=== PATIENT | female | born 1945 | race Caucasian/White ===

== ENCOUNTER 2018-07-24 13:43 | Inpatient (IN) ==
[2018-07-24] MEDS ORDERED: Morphine Inj 4 MG/ML Vial IV.PUSH ONE (15:18)
[2018-07-24] MEDS ORDERED: Aztreonam Inj 2 GM in Sodium Chloride 0.9% Inj 100 ML IV.SIG STA (15:18)
[2018-07-24] MEDS ORDERED: Vancomycin Inj 1,000 MG in Sodium Chlor 0.9% Inj 250 ML IV.SIG STA (15:18)
--- NOTE | 2018-07-24 15:50 | ED ---
HPI General Chief complaint: Extremity Problem,Nontraumatic Stated complaint: R foot swelling Time Seen by Provider: 07/24/18 15:07 Source: patient and old records reviewed Mode of arrival: ambulatory Limitations: no limitations History of Present Illness MD complaint: Reports discoloration Onset (ago): week(s) (On about 07/15) Location: Reports R foot Severity: severe Severity scale (1-10): 9 Pain Consistency: constant Relieving factors: none Exacerbating factors: none Context: Reports other (She is diabetic. She was apparently bitten by a bug on about 07/15 while working in the garden. She has subsequently developed increasing redness, warmth, swelling and pain of the right foot) Associated symptoms: Reports fever and chills Treatments prior to arrival: Reports antibiotic (Both Bactrim and clindamycin) Related Data Home Medications Medication Instructions Recorded Confirmed aspirin [Aspirin Low Dose] 81 mg PO DAILY 07/22/18 07/24/18 atorvastatin 40 mg PO DAILY 07/22/18 07/24/18 cholecalciferol (vitamin D3) 400 unit PO DAILY 07/22/18 07/24/18 [Vitamin D3] cyanocobalamin (vitamin B-12) 500 mcg PO DAILY 07/22/18 07/24/18 [Vitamin B-12] duloxetine 60 mg PO DAILY 07/22/18 07/24/18 enalapril maleate 10 mg PO BID 07/22/18 07/24/18 fentanyl 1 patch TRANSDERMAL Q72H 07/22/18 07/24/18 ferrous sulfate [iron] 325 mg PO BID 07/22/18 07/24/18 furosemide 40 mg PO DAILY 07/22/18 07/24/18 insulin aspart U-100 [Novolog 1 sliding scale dose SUBCUT UD 07/22/18 07/24/18 U-100 Insulin aspart] insulin glargine [Lantus U-100 46 unit SUBCUT DAILY 07/22/18 07/24/18 Insulin] levothyroxine 20 mcg PO DAILY 07/22/18 07/24/18 omeprazole 20 mg PO DAILY 07/22/18 07/24/18 clindamycin HCl 150 mg PO QID 07/24/18 07/24/18 sulfamethoxazole-trimethoprim 2 tab PO Q12H 07/24/18 07/24/18 [Bactrim] Allergies Allergy/AdvReac Type Severity Reaction Status Date / Time codeine Allergy Severe SWELLING Verified 07/24/18 14:03 penicillin G Allergy Severe SWELLING Verified 07/24/18 14:03 Review of Systems ROS: all other systems reviewed are negative [facility] Medical History Medical History History of high cholesterol (Acute) Hx of anemia of chronic renal failure (Acute) Hx of diabetes mellitus (Acute) Hx of hysterectomy (Acute) Hx of thyroid disease (Acute) Surgical History Surgical History History of back surgery (Acute) Hx of appendectomy (Acute) Hx of knee surgery (Acute) Hx of tonsillectomy (Acute) Social History Social History Substance History: No History of Abuse Second Hand Smoke Exposure: Yes Smoking Status: Current every day smoker Tobacco Type: Cigarettes How Often Do You Have a Drink Containing Alcohol: Never Recent Travel in [facility] within the Last 8 Weeks: No Recent Out of Country Travel within the Last 8 Weeks: No Immunization History Tetanus Immunization: <5 Years Exam Const General: cooperative, healthy appearing, comfortable, no acute distress, well developed and well groomed Orientation: alert, awake and oriented x3 HENMT Head: normal to inspection, normocephalic and atraumatic Nose: no nasal discharge and no epistaxis Mouth: moist mucous membranes Eyes Conjunctivae: conjunctivae normal Sclera: sclerae normal Pupils: PERRL EOM: EOM intact bilaterally Neck Neck: normal visual inspection and full ROM Chest Chest: normal inspection of the chest Resp Effort & Inspection: normal respiratory effort and able to speak in complete sentences Auscultation: clear to auscultation bilaterally Cardio Rate: regular rate Rhythm: regular rhythm Heart Sounds: no murmurs GI Inspection: non-distended Palpation: soft, no hepatosplenomegaly and nontender Back/Spine/Pelvis Cervical Spine: cervical ROM normal Thoracic/Lumbar Spine: thoraco-lumbar ROM normal Skin General: erythema (There is a wound at the base of the right fourth toe with some associated maceration. She has bright redness of the entire dorsum of the right foot worse on the lateral foot. It is warm to the touch.) Neuro General: alert, awake, oriented x3, moves all extremities and CN's II-XI intact bilaterally Cranial Nerves: other Speech: speech normal Motor: no movement abnormalities noted Extrem General: normal to inspection and full ROM Psych Appearance: grossly normal Mental Status: mental status grossly normal Speech and Movement: speech and movement normal Mood: congruent mood Affect: normal affect Attitude: cooperative Thought Process: normal Thought Content: normal Judgment: judgment good Course Consultations Consultation #1: Dr. Quinteros will admit Time: 16:21 Initial Documented Vital Signs Temperature 99.2 F 07/24/18 14:03 Pulse Rate 94 H 07/24/18 14:03 Respiratory Rate 18 07/24/18 14:03 Blood Pressure 149/62 H 07/24/18 14:03 Pulse Oximetry 98 07/24/18 14:03 Last Documented Vital Signs Temperature 99.2 F 07/24/18 14:03 Pulse Rate 94 H 07/24/18 14:03 Respiratory Rate 18 07/24/18 14:03 Blood Pressure 149/62 H 07/24/18 14:03 Pulse Oximetry 98 07/24/18 14:03 Medical Decision Making [facility] Narrative Medical decision making narrative: This patient presents for recheck of cellulitis of her right foot. It is worse rather than better. She has been compliant with her Bactrim and clindamycin. She has failed outpatient management and will need to be admitted to the hospital. Septic workup is in process. She is being empirically treated with aztreonam, Flagyl and vancomycin. She is penicillin allergic. Medical Screen Exam Complete: Yes Emergency Medical Condition: Yes Differential Diagnosis Differential Diagnosis: My differential diagnosis includes but is not limited to localized wound infection, cellulitis, abscess Lab Data Lab results reviewed: Yes I reviewed the patient's lab results. Result diagrams: 07/24/18 15:28 07/24/18 15:28 Lab Results 07/24/18 07/24/18 07/24/18 Range/Units 15:28 15:28 15:28 CBC w Diff Auto diff final WBC 13.3 H (4.0-11.0) th/mm3 RBC 4.92 (4.00-5.30) mil/mm3 Hgb 13.9 (11.6-15.3) gm/dL Hct 43.4 (35.0-46.0) % MCV 88.2 (80.0-100.0) fL MCH 28.2 (27.0-34.0) pg MCHC 32.0 (32.0-36.0) % RDW 13.1 (11.6-17.2) % Plt Count 284 (150-450) th/mm3 MPV 8.9 (7.0-11.0) fL Neut % (Auto) 80.7 H (16.0-70.0) % Lymph % (Auto) 15.9 (9.0-44.0) % [place] % (Auto) 1.8 (0.0-8.0) % Eos % (Auto) 1.0 (0.0-4.0) % Baso % (Auto) 0.6 (0.0-2.0) % Neut # (Auto) 10.8 H (1.8-7.7) th/mm3 Lymph # (Auto) 2.1 (1.0-4.8) th/mm3 [place] # (Auto) 0.2 (0.0-0.9) th/mm3 Eos # (Auto) 0.1 (0.0-0.4) th/mm3 Baso # (Auto) 0.1 (0.0-0.2) th/mm3 WBC Differential . Differential Comment . Sodium 133 L (136-145) meq/L Potassium 4.2 (3.5-5.1) meq/L Chloride 97 L (98-107) meq/L Carbon Dioxide 29.3 (21.0-32.0) meq/L Anion Gap 7 (5-15) meq/L BUN 21 H (7-18) mg/dL Creatinine 1.30 H (0.50-1.00) mg/dL Estimated GFR 40 L (>89) mL/min Random Glucose 235 H (74-106) mg/dL Lactic Acid 1.7 (0.4-2.0) mmol/L Calcium 8.4 L (8.5-10.1) mg/dL Magnesium 2.6 H (1.5-2.5) mg/dL Total Bilirubin 0.4 (0.2-1.0) mg/dL AST 19 (15-37) U/L ALT 26 (10-53) U/L Alkaline Phosphatase 109 (45-117) U/L Total Protein 7.9 (6.4-8.2) g/dL Albumin 3.5 (3.4-5.0) g/dL Imaging Data Radiologist's impression: Foot X-Ray 07/24/18 15:18 CONCLUSION: 1. There are some degenerative changes and hallux valgus angulation at the first metatarsal-phalangeal joint. 2. Otherwise, unremarkable exam for patient's age. Discharge Plan Discharge Disposition Patient Disposition: ED Admit(ED Internal Use Only) Discharge Details Diagnosis: Cellulitis of foot, right Physicians Team ED Provider: Cheryl Whiting Primary Care Provider: UNKNOWN, Rxs /Orders / Referrals /Forms Prescriptions: No Action furosemide 40 mg Tablet 40 mg PO DAILY RF: 0 atorvastatin 40 mg Tablet 40 mg PO DAILY RF: 0 insulin glargine [Lantus U-100 Insulin] 100 unit/mL Solution 46 unit SUBCUT DAILY RF: 0 enalapril maleate 10 mg Tablet 10 mg PO BID RF: 0 aspirin [Aspirin Low Dose] 81 mg Tablet,Delayed Release (Dr/Ec) 81 mg PO DAILY RF: 0 cyanocobalamin (vitamin B-12) [Vitamin B-12] 500 mcg Tablet 500 mcg PO DAILY RF: 0 insulin aspart U-100 [Novolog U-100 Insulin aspart] 100 unit/mL Solution 1 sliding scale dose SUBCUT UD RF: 0 ferrous sulfate [iron] 325 mg (65 mg iron) Tablet 325 mg PO BID RF: 0 fentanyl 75 mcg/hr Patch 72 Hour 1 patch TRANSDERMAL Q72H RF: 0 cholecalciferol (vitamin D3) [Vitamin D3] 400 unit Capsule 400 unit PO DAILY RF: 0 duloxetine 60 mg Capsule,Delayed Release(Dr/Ec) 60 mg PO DAILY RF: 0 omeprazole 20 mg Tablet,Delayed Release (Dr/Ec) 20 mg PO DAILY RF: 0 levothyroxine 25 mcg Capsule 20 mcg PO DAILY RF: 0 sulfamethoxazole-trimethoprim [Bactrim] 400-80 mg Tablet 2 tab PO Q12H RF: 0 clindamycin HCl 150 mg Capsule 150 mg PO QID RF: 0 Status ED Status: Pending Admission
[2018-07-24 15:51] LABS: Baso # (Auto) 0.1 th/mm3 (0.0-0.2); Baso % (Auto) 0.6 % (0.0-2.0); Eos # (Auto) 0.1 th/mm3 (0.0-0.4); Hematocrit 43.4 % (35.0-46.0); Hemoglobin 13.9 gm/dL (11.6-15.3); Lymph # (Auto) 2.1 th/mm3 (1.0-4.8); Lymph % (Auto) 15.9 % (9.0-44.0); Mean Corpuscular Hemoglobin 28.2 pg (27.0-34.0); Mean Corpuscular Volume 88.2 fL (80.0-100.0); Mean Platelet Volume 8.9 fL (7.0-11.0); Mono # (Auto) 0.2 th/mm3 (0.0-0.9); Mono % (Auto) 1.8 % (0.0-8.0); Neut # (Auto) 10.8 th/mm3 (1.8-7.7); Neut % (Auto) 80.7 % (16.0-70.0); Platelet Count 284 th/mm3 (150-450); Red Blood Count 4.92 mil/mm3 (4.00-5.30); Red Cell Distribution Width 13.1 % (11.6-17.2); White Blood Count 13.3 th/mm3 (4.0-11.0)
[2018-07-24 15:56] LABS: Chloride 97 meq/L (98-107); Potassium 4.2 meq/L (3.5-5.1); Sodium 133 meq/L (136-145)
--- NOTE | 2018-07-24 15:58 | XR ---
EXAM DATE: 07/24/2018 3:54 PM EST AGE/SEX: 73 years / Female INDICATIONS: Inflammation right foot, 4th MCPJ, after a bug bite 1 week ago. CLINICAL DATA: This is the patient's initial encounter. Patient reports that signs and symptoms have been present for 1 week and indicates a pain score of 8/10. MEDICAL/SURGICAL HISTORY: None. None. COMPARISON: No prior exams available for comparison. FINDINGS: Bony structures are intact and in normal alignment. There are some mild degenerative changes involvin g the first metatarsal-phalangeal joint with some hallux valgus angulation. The fourth toe is grossly unremarkable. Osseous density is normal. Soft tissues are unremarkable. No radiopaque foreign bodi es seen. CONCLUSION: 1. There are some degenerative changes and hallux valgus angulation at the first metatarsal-phalange al joint. 2. Otherwise, unremarkable exam for patient's age. Electronically signed by: Enoch De Leon MD Board Certified Radiologist 07/24/2018 3:56 PM EST
[2018-07-24 15:59] LABS: Calcium 8.4 mg/dL (8.5-10.1)
[2018-07-24 16:00] LABS: Albumin 3.5 g/dL (3.4-5.0); Anion Gap 7 meq/L (5-15); Blood Urea Nitrogen 21 mg/dL (7-18); Carbon Dioxide 29.3 meq/L (21.0-32.0); Glucose,Random 235 mg/dL (74-106); Magnesium 2.6 mg/dL (1.5-2.5)
[2018-07-24 16:03] LABS: Alanine Aminotransferase 26 U/L (10-53); Aspartate Aminotransferase 19 U/L (15-37); Glomerular Filtration Rate 40 mL/min (>89)
[2018-07-24 16:04] LABS: Total Protein 7.9 g/dL (6.4-8.2)
[2018-07-24 16:06] LABS: Alkaline Phosphatase 109 U/L (45-117)
[2018-07-24] MEDS ORDERED: Bisacodyl 10 MG Supp RECTAL PRN (16:35)
[2018-07-24] MEDS ORDERED: Acetaminophen 325 MG Tablet PO PRN (16:35)
[2018-07-24] MEDS ORDERED: Dextrose 50% in Water 50 ML Vial IV.PUSH PRN (16:38)
[2018-07-24] MEDS ORDERED: Vancomycin Consult Pharmacy OTHER PRN (16:43)
--- NOTE | 2018-07-24 16:49 | P.HPIM ---
History of Present Illness Primary Care Physician: UNKNOWN Chief Complaint: Right foot pain History of Present Illness: 73-year-old female with known history of diabetes, anemia, chronic kidney disease who presented to the emergency department for reevaluation of right foot pain and cellulitis. Patient states that approximately 8 days ago she thinks that she got bit by an insect on her right foot fourth digit. She went to her prior medical doctor's office the next day and started on Bactrim. Patient took the medication and did not get any better so she went to the emergency department 2 days ago. At that time patient was started on clindamycin and took that for approximately 2 days and she still has not improved. It actually got worse with pain, swelling, erythema. The patient came back to the hospital for evaluation and because the patient failed outpatient management as recommended by ER physician the patient be admitted to hospital for further evaluation and management. Patient denies any fever, chills, exudates, drainage. Workup in the emergency department indicate signs of sepsis with leukocytosis, tachycardia, cellulitis of the right foot in a diabetic patient. Review of Systems Review of Systems: all other systems reviewed are negative Skin/Breast: Reports change in pigmentation, Reports lesions and Reports erythema PMFSH Medical History Medical History Hypertension (Acute) History of high cholesterol (Acute) Hx of anemia of chronic renal failure (Acute) Hx of diabetes mellitus (Acute) Hx of hysterectomy (Acute) Hx of thyroid disease (Acute) Surgical History Surgical History History of back surgery (Acute) Hx of appendectomy (Acute) Hx of knee surgery (Acute) Hx of tonsillectomy (Acute) Social History Social History Substance History: No History of Abuse Second Hand Smoke Exposure: Yes Smoking Status: Current every day smoker Tobacco Type: Cigarettes How Often Do You Have a Drink Containing Alcohol: Never Recent Travel in [facility] within the Last 8 Weeks: No Recent Out of Country Travel within the Last 8 Weeks: No Immunization History Tetanus Immunization: <5 Years Medications and Allergies Allergies Allergy/AdvReac Type Severity Reaction Status Date / Time codeine Allergy Severe SWELLING Verified 07/24/18 14:03 penicillin G Allergy Severe SWELLING Verified 07/24/18 14:03 Home Medications Medication Instructions Recorded Confirmed Type aspirin [Aspirin Low Dose] 81 mg PO DAILY 07/22/18 07/24/18 History atorvastatin 40 mg PO DAILY 07/22/18 07/24/18 History cholecalciferol (vitamin D3) 400 unit PO DAILY 07/22/18 07/24/18 History [Vitamin D3] cyanocobalamin (vitamin B-12) 500 mcg PO DAILY 07/22/18 07/24/18 History [Vitamin B-12] duloxetine 60 mg PO DAILY 07/22/18 07/24/18 History enalapril maleate 10 mg PO BID 07/22/18 07/24/18 History fentanyl 1 patch TRANSDERMAL Q72H 07/22/18 07/24/18 History ferrous sulfate [iron] 325 mg PO BID 07/22/18 07/24/18 History furosemide 40 mg PO DAILY 07/22/18 07/24/18 History insulin aspart U-100 [Novolog 1 sliding scale dose SUBCUT UD 07/22/18 07/24/18 History U-100 Insulin aspart] insulin glargine [Lantus U-100 46 unit SUBCUT DAILY 07/22/18 07/24/18 History Insulin] levothyroxine 20 mcg PO DAILY 07/22/18 07/24/18 History omeprazole 20 mg PO DAILY 07/22/18 07/24/18 History clindamycin HCl 150 mg PO QID 07/24/18 07/24/18 History sulfamethoxazole-trimethoprim 2 tab PO Q12H 07/24/18 07/24/18 History [Bactrim] Active Medications: Active Medications Acetaminophen (Tylenol) 650 mg PO Q4H PRN PRN Reason: Temp > 100.4 Al Hydroxide/Mg Hydroxide (Milk Of Magnesia Liq) 30 ml PO Q12H PRN PRN Reason: Mild Constipation Bisacodyl (Dulcolax Supp) 10 mg RECTAL DAILY PRN PRN Reason: SEVERE CONSITIPATION Dextrose (D50w Vial) 50 ml IV.PUSH UNSCH PRN PRN Reason: PER HYPOGLYCEMIA PROTOCOL Glucagon (Glucagon Inj) 1 mg OTHER PRN PRN PRN Reason: for Hypoglycemia Protocol Heparin Sodium (Porcine) (Heparin Inj) 5,000 units SQ Q12HR LIBIA Sodium Chloride (Ns Inj) 1,000 mls @ 100 mls/hr IV.CONT .Q10H LIBIA Insulin Aspart (Novolog Insulin Correctional Sugar Inj) 0 unit SQ ACHS LIBIA; Protocol Lactulose (Lactulose Liq) 30 ml PO DAILY PRN PRN Reason: SEVERE CONSITIPATION Ondansetron HCl (Zofran Inj) 4 mg IV.PUSH Q6H PRN PRN Reason: NAUSEA OR VOMITING Senna/Docusate Sodium (Mihaela-Colace) 1 tab PO BID LIBIA Sennosides (Senokot) 17.2 mg PO Q12H PRN PRN Reason: Moderate Constipation Sodium Chloride (Ns Flush) 2 ml IV.FLUSH BID LIBIA Sodium Chloride (Ns Flush) 2 ml IV.FLUSH PRN PRN PRN Reason: FLUSH AFTER USING IV ACCESS Physical Exam Vital signs: Last Vital Signs Temp 99.2 F 07/24/18 14:03 Pulse 94 H 07/24/18 14:03 Resp 18 07/24/18 14:03 BP 149/62 H 07/24/18 14:03 Pulse Ox 98 07/24/18 14:03 Intake & Output 07/22/18 07/23/18 07/24/18 07/25/18 06:59 06:59 06:59 06:59 Weight 61.5 kg Narrative: GENERAL: Well-developed, well-nourished, in no acute distress. alert and orientated HEENT: Head is normocephalic without any lesions or masses noted. Facial features are symmetric. Eyes: Pupils equal round reactive to light. Extraocular muscles are intact. Conjunctivae were clear. Oropharyngeal: Pharynx without any erythema edema. Tongue is midline without deviation. Buccal mucosa is moist without any masses or lesions NECK: Supple without any masses. Trachea midline no deviation. No JVD, no bruits are appreciated CARDIAC: Regular rhythm, regular rate. S1/S2 are heard. No murmurs gallops or rubs. LUNGS: Clear to auscultation bilaterally. No wheeze, rhonchi or rales. No use of accessory muscles on inspiration or expiration. ABDOMEN: Soft, nontender. Nondistended. Bowel sounds heard in all 4 quadrants. No organomegaly or masses. Negative rebound, negative guarding EXTREMITIES: No edema, pulses are equal bilaterally. No cyanosis or clubbing NEUROLOGY: Mood and affect appear appropriate. Cranial nerves II through XII grossly intact. Muscle strength 5/5 in upper and lower extremities bilaterally. Deep tendon reflexes are 2+ in upper and lower extremities bilaterally. RIGHT FOOT: Patient does have significant erythema noted measuring from the space between the first and second digit to the space between the fourth and fifth digit going up to the anterior part of her foot. There is bullous formation noted over the base of the fourth digit. Results Labs CBC & Chem 7: 07/24/18 15:28 07/24/18 15:28 Imaging Impressions Foot X-Ray 07/24/18 15:18 CONCLUSION: 1. There are some degenerative changes and hallux valgus angulation at the first metatarsal-phalangeal joint. 2. Otherwise, unremarkable exam for patient's age. Caprini VTE Risk Assessment Caprini VTE Risk Assessment: Moderate/High Risk (score >= 2) Caprini Risk Assessment Model: Point Value = 1 Point Value = 2 Point Value = 3 Point Value = 5 Age 41-60 Minor surgery BMI > 25 kg/m2 Swollen legs Varicose veins or History of unexplained or recurrent spontaneous Oral contraceptives or hormone replacement Sepsis (< 1 month) Serious lung disease, including pneumonia (< 1 month) Abnormal pulmonary function Acute myocardial infarction Congestive heart failure (< 1 month) History of inflammatory bowel disease Medical patient at bed rest Age 61-74 Arthroscopic surgery Major open surgery (> 45 min) Laparoscopic surgery (> 45 min) Malignancy Confined to bed (> 72 hours) Immobilizing plaster cast Central venous access Age >= 75 History of VTE Family history of VTE Factor V Leiden Prothrombin [id number] Lupus anticoagulant Anticardiolipin antibodies Elevated serum homocysteine Heparin-induced thrombocytopenia Other congenital or acquired thrombophilia Stroke (< 1 month) Elective arthroplasty Hip, pelvis, or leg fracture Acute spinal cord injury (< 1 month) Prophylaxis Regimen: Total Risk Factor Score Risk Level Prophylaxis Regimen 0-1 Low Early ambulation 2 Moderate Order ONE of the following: *Sequential Compression Device (SCD) *Heparin 5000 units SQ BID 3-4 Higher Order ONE of the following medications: *Heparin 5000 units SQ TID *Enoxaparin/Lovenox 40 mg SQ daily (WT < 150 kg, CrCl > 30 mL/min) *Enoxaparin/Lovenox 30 mg SQ daily (WT < 150 kg, CrCl > 10-29 mL/min) *Enoxaparin/Lovenox 30 mg SQ BID (WT < 150 kg, CrCl > 30 mL/min) AND/OR *Sequential Compression Device (SCD) 5 or more Highest Order ONE of the following medications: *Heparin 5000 units SQ TID (Preferred with Epidurals) *Enoxaparin/Lovenox 40 mg SQ daily (WT < 150 kg, CrCl > 30 mL/min) *Enoxaparin/Lovenox 30 mg SQ daily (WT < 150 kg, CrCl > 10-29 mL/min) *Enoxaparin/Lovenox 30 mg SQ BID (WT < 150 kg, CrCl > 30 mL/min) AND *Sequential Compression Device (SCD) Assessment and Plan Plan Sepsis -Patient meets criteria with leukocytosis, tachycardia, diabetic foot infection of the right foot -Patient started on empirical antibiotics include vancomycin, Azactam, Flagyl -Obtain blood cultures -Continue monitor CBC Diabetic foot cellulitis with bolus formation at the fourth digit -Patient started on empirical antibiotics as above -Obtain sed rate, C-reactive protein -Obtain x-ray of the foot to evaluate for any signs of osteomyelitis -Consult podiatry for further recommendations Diabetes -Accu-Cheks with sliding scale insulin -Diabetic diet Hypertension, hyperlipidemia, hypothyroidism -Continue home medications Chronic pain -Patient currently on fentanyl patch 75 mcg -E force was reviewed and confirms that she is on the medication Chronic kidney disease stage III -Continue IV fluids -Monitor renal function -Avoid nephrotoxins DVT prevention -Sequential compression devices
[2018-07-24] MEDS: Sod Chloride 0.9% Inj 1,000 ML IV.CONT SCH (17:51)
[2018-07-24] MEDS: Insulin NovoLOG Aspart Correctional Sugar Inj SQ SCH ×2 (18:54→22:10)
[2018-07-24] MEDS ORDERED: Heparin - SQ 10,000 UNITS/ML Vial SQ SCH (21:00)
[2018-07-24] MEDS: Ferrous Sulfate 325 MG Tablet PO SCH (23:33)
[2018-07-24] MEDS: Senna/Docusate Sodium 8.6/50 MG Tablet PO SCH (23:33)
[2018-07-25] MEDS: Sod Chloride 0.9% Inj 1,000 ML IV.CONT SCH ×3 (05:27→22:23)
--- NOTE | 2018-07-25 08:04 | P.PNIM ---
Subjective Interval history: Follow-up right foot cellulitis with possible abscess. Patient seen and examined, sitting up in bed with notable pain. She states that there has been no improvement overnight. Sensation intact. Notable fluctuance on fourth digit. Spoke to surgeon who ordered for NPO and MRI. Plan will possibly be for OR this afternoon. Physical Exam Vital signs: Vital Signs 07/24/18 14:03 07/24/18 17:36 07/24/18 19:56 Temperature 99.2 F Pulse Rate 94 H 69 78 Respiratory Rate 18 20 20 Blood Pressure 149/62 H 115/49 L 136/53 L Pulse Oximetry 98 96 95 07/24/18 22:23 07/25/18 00:00 07/25/18 00:15 Temperature 97.9 F Pulse Rate 71 69 83 Respiratory Rate 18 18 Blood Pressure 121/52 L 153/70 H Pulse Oximetry 98 97 07/25/18 04:00 07/25/18 04:52 Temperature 96.5 F L Pulse Rate 64 65 Respiratory Rate 18 Blood Pressure 129/59 L Pulse Oximetry 98 Intake & Output 07/24/18 07/25/18 07/25/18 18:59 06:59 18:59 Intake Total 200 / 200 2100 / 2100 Output Total 350 / 350 Balance 200 / 200 1750 / 1750 Weight 61.5 kg 68.5 kg Intake: IV 200 / 200 1900 / 1900 NS Inj 1,000 ML @ 100 mls/hr IV 1450 / 1450 .CONT .Q10H [facility] Rx#:[id number] Azactam Inj 1,000 MG In NS Inj 100 / 100 100 ML @ 200 mls/hr IV.SIG Q8H [facility] Rx#:[id number] Azactam Inj 2 GM In NS Inj 100 100 / 100 ML @ 200 mls/hr IV.SIG STAT STA Rx#:[id number] Vancomycin Inj 1,000 MG In NS 250 / 250 Inj 250 ML @ 250 mls/hr IV.SIG STAT STA Rx#:[id number] Flagyl 500 MG Inj 100 ML @ 100 100 / 100 100 / 100 mls/hr IV.SIG Q8H [facility] Rx#: [id number] Oral 200 / 200 Output: Urine 350 / 350 Other: Date of Last Bowel Movement 07/24/18 Weight On Admission 68.1 kg Narrative: GENERAL: Well-developed, well-nourished, in no acute distress. alert and orientated HEENT: Head is normocephalic without any lesions or masses noted. Facial features are symmetric. Eyes: Pupils equal round reactive to light. Extraocular muscles are intact. Conjunctivae were clear. Oropharyngeal: Pharynx without any erythema edema. Tongue is midline without deviation. Buccal mucosa is moist without any masses or lesions NECK: Supple without any masses. Trachea midline no deviation. No JVD, no bruits are appreciated CARDIAC: Regular rhythm, regular rate. S1/S2 are heard. No murmurs gallops or rubs. LUNGS: Clear to auscultation bilaterally. No wheeze, rhonchi or rales. No use of accessory muscles on inspiration or expiration. ABDOMEN: Soft, nontender. Nondistended. Bowel sounds heard in all 4 quadrants. No organomegaly or masses. Negative rebound, negative guarding EXTREMITIES: No edema, pulses are equal bilaterally. No cyanosis or clubbing NEUROLOGY: Mood and affect appear appropriate. Cranial nerves II through XII grossly intact. Muscle strength 5/5 in upper and lower extremities bilaterally. Deep tendon reflexes are 2+ in upper and lower extremities bilaterally. RIGHT FOOT: Patient does have significant erythema noted measuring from the space between the first and second digit to the space between the fourth and fifth digit going up to the anterior part of her foot. There is bullous formation noted over the base of the fourth digit. Notable fluctuance. Results - Labs CBC & Chem 7: 07/24/18 15:28 07/24/18 15:28 Laboratory Results - last 24 hr 07/24/18 07/24/18 07/24/18 15:28 15:28 15:28 CBC w Diff Auto diff final WBC 13.3 H RBC 4.92 Hgb 13.9 Hct 43.4 MCV 88.2 MCH 28.2 MCHC 32.0 RDW 13.1 Plt Count 284 MPV 8.9 Neut % (Auto) 80.7 H Lymph % (Auto) 15.9 [place] % (Auto) 1.8 Eos % (Auto) 1.0 Baso % (Auto) 0.6 Neut # (Auto) 10.8 H Lymph # (Auto) 2.1 [place] # (Auto) 0.2 Eos # (Auto) 0.1 Baso # (Auto) 0.1 WBC Differential . Differential Comment . ESR Sodium 133 L Potassium 4.2 Chloride 97 L Carbon Dioxide 29.3 Anion Gap 7 BUN 21 H Creatinine 1.30 H Estimated GFR 40 L POC Glucose Random Glucose 235 H Lactic Acid 1.7 Calcium 8.4 L Magnesium 2.6 H Total Bilirubin 0.4 AST 19 ALT 26 Alkaline Phosphatase 109 C-Reactive Protein Total Protein 7.9 Albumin 3.5 07/24/18 07/24/18 07/24/18 15:28 15:28 17:00 CBC w Diff WBC RBC Hgb Hct MCV MCH MCHC RDW Plt Count MPV Neut % (Auto) Lymph % (Auto) [place] % (Auto) Eos % (Auto) Baso % (Auto) Neut # (Auto) Lymph # (Auto) [place] # (Auto) Eos # (Auto) Baso # (Auto) WBC Differential Differential Comment ESR 37 H Sodium Potassium Chloride Carbon Dioxide Anion Gap BUN Creatinine Estimated GFR POC Glucose Random Glucose Lactic Acid 1.3 Calcium Magnesium Total Bilirubin AST ALT Alkaline Phosphatase C-Reactive Protein 6.84 H Total Protein Albumin 07/24/18 07/24/18 07/24/18 17:54 21:33 21:35 CBC w Diff WBC RBC Hgb Hct MCV MCH MCHC RDW Plt Count MPV Neut % (Auto) Lymph % (Auto) [place] % (Auto) Eos % (Auto) Baso % (Auto) Neut # (Auto) Lymph # (Auto) [place] # (Auto) Eos # (Auto) Baso # (Auto) WBC Differential Differential Comment ESR Sodium Potassium Chloride Carbon Dioxide Anion Gap BUN Creatinine Estimated GFR POC Glucose 165 H 343 H 370 H Random Glucose Lactic Acid Calcium Magnesium Total Bilirubin AST ALT Alkaline Phosphatase C-Reactive Protein Total Protein Albumin - Imaging Impressions Foot X-Ray 07/24/18 15:18 CONCLUSION: 1. There are some degenerative changes and hallux valgus angulation at the first metatarsal-phalangeal joint. 2. Otherwise, unremarkable exam for patient's age. Assessment and Plan - Plan This is a 73-year-old female patient with: Sepsis -Patient meets criteria with leukocytosis, tachycardia, diabetic foot infection of the right foot -Patient started on empirical antibiotics include vancomycin, Azactam, Flagyl. Continued. -Obtain blood cultures. Pending. Follow. -Continue monitor CBC. Pending labs today. Follow. Diabetic foot cellulitis with bolus formation at the fourth digit -Patient started on empirical antibiotics as above -Sed rate and C-reactive protein elevated. -Keep n.p.o. MRI ordered for this morning. Follow. Spoke to podiatry, possible plan for OR this afternoon. -Right foot x-ray no notable osteomyelitis. Awaiting MRI. Diabetes -Accu-Cheks with sliding scale insulin -Diabetic diet -Monitor for hypoglycemia, n.p.o. Hypertension, hyperlipidemia, hypothyroidism -Continue home medications Chronic pain -Patient currently on fentanyl patch 75 mcg -E force was reviewed and confirms that she is on the medication -IV morphine as needed. Added [place] as well per pain scale. Chronic kidney disease stage III -Continue IV fluids -Monitor renal function -Avoid nephrotoxins DVT prevention -Sequential compression devices Discharge Planning: Podiatry consulted, plan for the OR this afternoon. Await clinical improvement.
[2018-07-25 08:28] LABS: Baso % (Auto) 0.2 % (0.0-2.0); Eos # (Auto) 0.3 th/mm3 (0.0-0.4); Eos % (Auto) 3.3 % (0.0-4.0); Hematocrit 36.8 % (35.0-46.0); Hemoglobin 11.6 gm/dL (11.6-15.3); Lymph # (Auto) 3.3 th/mm3 (1.0-4.8); Lymph % (Auto) 36.3 % (9.0-44.0); Mean Corpuscular HGB Conc 31.5 % (32.0-36.0); Mean Platelet Volume 8.9 fL (7.0-11.0); Mono # (Auto) 0.5 th/mm3 (0.0-0.9); Mono % (Auto) 5.2 % (0.0-8.0); Neut # (Auto) 4.9 th/mm3 (1.8-7.7); Platelet Count 237 th/mm3 (150-450); Red Blood Count 4.13 mil/mm3 (4.00-5.30); Red Cell Distribution Width 13.2 % (11.6-17.2)
[2018-07-25] MEDS: Insulin NovoLOG Aspart Correctional Sugar Inj SQ SCH ×3 (08:50→16:45)
[2018-07-25] MEDS: Ferrous Sulfate 325 MG Tablet PO SCH ×2 (08:51→22:08)
[2018-07-25] MEDS: Furosemide 40 MG Tablet PO SCH (08:51)
[2018-07-25] MEDS: Pantoprazole Sodium 20 MG DR Tablet PO SCH (08:52)
[2018-07-25] MEDS: Duloxetine 60 MG DR Capsule PO SCH (08:52)
[2018-07-25 08:54] LABS: Calcium 8.1 mg/dL (8.5-10.1); Carbon Dioxide 30.7 meq/L (21.0-32.0); Potassium 4.3 meq/L (3.5-5.1)
[2018-07-25] MEDS: Senna/Docusate Sodium 8.6/50 MG Tablet PO SCH ×2 (09:00→22:09)
[2018-07-25] MEDS ORDERED: Heparin Central Flush 100 UNIT/ML 5 ML Vial IV.FLUSH SCH (09:00)
[2018-07-25] MEDS ORDERED: Gadobutrol PF 7.5 MMOL/7.5 ML Vial (for RAD) IV.SIG ONE (10:56)
--- NOTE | 2018-07-25 11:23 | MR ---
EXAM DATE: 07/25/2018 11:16 AM EST AGE/SEX: 73 years / Female INDICATIONS: Osteomyelitis. Bug bite wound by the fourth MTPJ for one week. CLINICAL DATA: This is the patient's initial encounter. Patient reports that signs and symptoms have been present for 1 week and indicates a pain score of 8/10. MEDICAL/SURGICAL HISTORY: Diabetes mellitus type II. Renal insufficiency. Hyperthyroidism. To nsillectomy. Hysterectomy. Appendectomy. LSP sx, Knee sx, COMPARISON: . TECHNIQUE: Multiplanar, multisequence MRI examination was performed without contrast and after th e intravenous administration of 7 ml Gadavist (gadobutrol) single exam dose. FINDINGS: Bones: The osseous structures are in normal alignment. No evidence of fracture or bony edema. There are no obvious erosions present. Joint Spaces: No joint effusion or loose bodies are seen. The joint spaces are preserved. Tendons: The flexor tendons are intact. Soft Tissues: There is soft tissue swelling at the dorsal aspect of the mid and forefoot. There is a focal fluid collection measuring 1.4 x 1.1 x 1.7 cm at the dorsal aspect of the forefoot in the regio n of the interspace between the third and fourth proximal phalanges at the level of the MTP joints. E nhancement seen in this region. Other: The plantar fascia is intact. No signal abnormalities are seen in the plantar musculature. Post Contrast: CONCLUSION: 1. Soft tissue inflammation and suspected superficial abscess between the third and fourth MTP joint regions. 2. No areas of osteomyelitis are seen. Electronically signed by: Omari Landis MD Board Certified Radiologist 07/25/2018 11:22 AM EST
[2018-07-25] MEDS ORDERED: Bupivacaine PF 0.5% Inj 30 ML Vial ONE (16:45)
[2018-07-25] MEDS ORDERED: Lidocaine 2% Inj 50 ML Vial ONE (16:46)
--- NOTE | 2018-07-25 17:48 | P.CONPOD ---
History of Present Illness Service: Podiatry Consult date: 07/25/18 Reason for Consult: Right foot infection/pain Primary Care Provider: UNKNOWN Chief Complaint: Right foot pain History of Present Illness: Patient states she was outside and thinks she got a bug bite about a week ago to top of right forefoot. She says it has progressively become more painful and red and she has family who are nurses/physicians who advised she go to ED. Review of Systems All other systems reviewed negative except as stated in HPI PMFSH - History History Provided By: Patient - Medical History Medical History: Medical History (Last Updated 07/24/18 @ 17:00 by HUNTER Pardo) Hypertension History of high cholesterol Hx of anemia of chronic renal failure Hx of diabetes mellitus Hx of hysterectomy Hx of thyroid disease - Surgical History Surgical History: Surgical History (Last Reviewed 07/24/18 @ 16:51 by HUNTER Pardo) History of back surgery Hx of appendectomy Hx of knee surgery Hx of tonsillectomy - Family History Family History: Family History (Last Reviewed 07/22/18 @ 19:40 by Elliot Goldman MD) Father History of renal failure - Tobacco History Second Hand Smoke Exposure: No Tobacco Use In Past 30 Days: Yes Smoking Status: Current every day smoker Tobacco Type: Cigarettes - Alcohol History How Often Do You Have a Drink Containing Alcohol: Never - Substance Use History Substance History: No History of Abuse - Travel History Recent Travel in the [place] Within the Last 8 Weeks: No Recent Travel Out of the Country Within the Last 8 Weeks: No - Immunization History Tetanus Immunization: <5 Years Hx Influenza Vaccine This Season: Yes Medications and Allergies Active Medications: Active Medications Acetaminophen (Tylenol) 650 mg PO Q4H PRN PRN Reason: Temp > 100.4 Hydrocodone Bitart/Acetaminophen (Roberts 5/325) 1 tab PO Q4H PRN PRN Reason: PAIN SCALE 1 TO 5 Hydrocodone Bitart/Acetaminophen (Roberts 10/325) 1 tab PO Q4H PRN PRN Reason: PAIN SCALE 6 TO 10 Last Admin: 07/25/18 08:58 Dose: 1 tab Al Hydroxide/Mg Hydroxide (Milk Of Magnesia Liq) 30 ml PO Q12H PRN PRN Reason: Mild Constipation Atorvastatin Calcium (Lipitor) 40 mg PO DAILY [facility] Last Admin: 07/25/18 08:51 Dose: 40 mg Bisacodyl (Dulcolax Supp) 10 mg RECTAL DAILY PRN PRN Reason: SEVERE CONSITIPATION Dextrose (D50w Vial) 50 ml IV.PUSH UNSCH PRN PRN Reason: PER HYPOGLYCEMIA PROTOCOL Duloxetine HCl (Cymbalta) 60 mg PO DAILY [facility] Last Admin: 07/25/18 08:52 Dose: 60 mg Fentanyl (Duragesic 75 Mcg Patch.72hr) 1 patch T-DERMAL Q72H [facility] Ferrous Sulfate (Ferosul) 325 mg PO BID [facility] Last Admin: 07/25/18 08:51 Dose: 325 mg Furosemide (Lasix) 40 mg PO DAILY [facility] Last Admin: 07/25/18 08:51 Dose: 40 mg Glucagon (Glucagon Inj) 1 mg OTHER PRN PRN PRN Reason: for Hypoglycemia Protocol Heparin Sodium (Porcine) (Heparin Inj) 5,000 units SQ Q12HR [facility] Last Admin: 07/24/18 22:13 Dose: 5,000 units Heparin Sodium (Porcine) (Heparin Central Flush) 200 unit IV.FLUSH DAILY [facility] Sodium Chloride (Ns Inj) 1,000 mls @ 100 mls/hr IV.CONT .Q10H [facility] Last Admin: 07/25/18 12:58 Dose: 100 mls/hr Aztreonam 1,000 mg/ Sodium (Chloride) 100 mls @ 200 mls/hr IV.SIG Q8H [facility] Last Admin: 07/25/18 16:25 Dose: 200 mls/hr Metronidazole/Sodium Chloride (Flagyl 500 Mg Inj) 100 mls @ 100 mls/hr IV.SIG Q8H [facility] Last Infusion: 07/25/18 11:08 Dose: Infused Vancomycin HCl 1,000 mg/ (Sodium Chloride) 250 mls @ 250 mls/hr IV.SIG Q24H [facility] Insulin Aspart (Novolog Insulin Correctional Sugar Inj) 0 unit SQ ACHS [facility]; Protocol Last Admin: 07/25/18 16:45 Dose: Not Given Lactulose (Lactulose Liq) 30 ml PO DAILY PRN PRN Reason: SEVERE CONSITIPATION Levothyroxine Sodium (Synthroid) 25 mcg PO DAILY@0600 [facility] Miscellaneous Information ([facility] Ordered Lab Info) 0 each OTHER ONCE ONE Stop: 07/27/18 17:46 Morphine Sulfate (Morphine Inj) 2 mg IV.PUSH Q4H PRN PRN Reason: BREAKTHROUGH PAIN Ondansetron HCl (Zofran Inj) 4 mg IV.PUSH Q6H PRN PRN Reason: NAUSEA OR VOMITING Pantoprazole Sodium (Protonix) 20 mg PO DAILY [facility] Last Admin: 07/25/18 08:52 Dose: 20 mg Pharmacy Profile Note (Vancomycin Consult Pharmacy) 1 each OTHER UNSCH PRN PRN Reason: Pharmacy to dose Senna/Docusate Sodium (Mihaela-Colace) 1 tab PO BID [facility] Last Admin: 07/25/18 09:00 Dose: Not Given Sennosides (Senokot) 17.2 mg PO Q12H PRN PRN Reason: Moderate Constipation Sodium Chloride (Ns Flush) 2 ml IV.FLUSH BID [facility] Last Admin: 07/25/18 09:00 Dose: Not Given Sodium Chloride (Ns Flush) 2 ml IV.FLUSH PRN PRN PRN Reason: FLUSH AFTER USING IV ACCESS Allergies Allergy/AdvReac Type Severity Reaction Status Date / Time codeine Allergy Severe SWELLING Verified 07/24/18 14:03 penicillin G Allergy Severe SWELLING Verified 07/24/18 14:03 Home Medications Medication Instructions Recorded Confirmed Type aspirin [Aspirin Low Dose] 81 mg PO DAILY 07/22/18 07/24/18 History atorvastatin 40 mg PO DAILY 07/22/18 07/24/18 History cholecalciferol (vitamin D3) 400 unit PO DAILY 07/22/18 07/24/18 History [Vitamin D3] cyanocobalamin (vitamin B-12) 500 mcg PO DAILY 07/22/18 07/24/18 History [Vitamin B-12] duloxetine 60 mg PO DAILY 07/22/18 07/24/18 History fentanyl 1 patch TRANSDERMAL Q72H 07/22/18 07/24/18 History ferrous sulfate [iron] 325 mg PO BID 07/22/18 07/24/18 History furosemide 40 mg PO DAILY 07/22/18 07/24/18 History insulin aspart U-100 [Novolog 1 sliding scale dose SUBCUT UD 07/22/18 07/24/18 History U-100 Insulin aspart] insulin glargine [Lantus U-100 46 unit SUBCUT DAILY 07/22/18 07/24/18 History Insulin] levothyroxine 20 mcg PO DAILY 07/22/18 07/24/18 History omeprazole 20 mg PO DAILY 07/22/18 07/24/18 History clindamycin HCl 150 mg PO QID 07/24/18 07/24/18 History sulfamethoxazole-trimethoprim 2 tab PO Q12H 07/24/18 07/24/18 History [Bactrim] Physical Exam Vital signs: Vital Signs 07/24/18 19:56 07/24/18 22:23 07/25/18 00:00 Temperature 97.9 F Pulse Rate 78 71 69 Respiratory Rate 20 18 18 Blood Pressure 136/53 L 121/52 L 153/70 H Pulse Oximetry 95 98 97 07/25/18 00:15 07/25/18 04:00 07/25/18 04:52 Temperature 96.5 F L Pulse Rate 83 64 65 Respiratory Rate 18 Blood Pressure 129/59 L Pulse Oximetry 98 07/25/18 08:00 07/25/18 12:00 07/25/18 13:10 Temperature 97.3 F L 97.8 F Pulse Rate 75 65 65 Respiratory Rate 19 19 Blood Pressure 120/59 L 148/66 H Pulse Oximetry 96 96 Intake & Output 07/24/18 07/25/18 07/25/18 18:59 06:59 18:59 Intake Total 200 / 200 2100 / 2100 1200 / 1200 Output Total 350 / 350 500 / 500 Balance 200 / 200 1750 / 1750 700 / 700 Weight 61.5 kg 68.5 kg Intake: IV 200 / 200 1900 / 1900 1200 / 1200 NS Inj 1,000 ML @ 100 mls/hr IV 1450 / 1450 1000 / 1000 .CONT .Q10H [facility] Rx#:[id number] Azactam Inj 1,000 MG In NS Inj 100 / 100 100 / 100 100 ML @ 200 mls/hr IV.SIG Q8H [facility] Rx#:[id number] Azactam Inj 2 GM In NS Inj 100 100 / 100 ML @ 200 mls/hr IV.SIG STAT STA Rx#:[id number] Vancomycin Inj 1,000 MG In NS 250 / 250 Inj 250 ML @ 250 mls/hr IV.SIG STAT STA Rx#:[id number] Flagyl 500 MG Inj 100 ML @ 100 100 / 100 100 / 100 100 / 100 mls/hr IV.SIG Q8H [facility] Rx#: [id number] Oral 200 / 200 0 / 0 Output: Urine 350 / 350 500 / 500 Other: Date of Last Bowel Movement 07/24/18 07/24/18 Weight On Admission 68.1 kg Narrative: Right dorsal base of 4th toe area with necrotic center, purulent drainage, and surrounding indurated tissue and erythema/edema to right forefoot diffusely. Painful to palpation. Sensation intact. Pulses intact. Brisk capillary refill to digits. Results - Labs CBC & Chem 7: 07/25/18 06:35 07/25/18 06:35 Laboratory Results - last 24 hr 07/24/18 07/24/18 07/24/18 15:28 17:54 21:33 CBC w Diff WBC RBC Hgb Hct MCV MCH MCHC RDW Plt Count MPV Neut % (Auto) Lymph % (Auto) [place] % (Auto) Eos % (Auto) Baso % (Auto) Neut # (Auto) Lymph # (Auto) [place] # (Auto) Eos # (Auto) Baso # (Auto) WBC Differential Differential Comment ESR 37 H Sodium Potassium Chloride Carbon Dioxide Anion Gap BUN Creatinine Estimated GFR POC Glucose 165 H 343 H Random Glucose Calcium 07/24/18 07/25/18 07/25/18 21:35 06:35 06:35 CBC w Diff Auto diff final WBC 9.0 RBC 4.13 Hgb 11.6 D Hct 36.8 MCV 89.0 MCH 28.0 MCHC 31.5 L RDW 13.2 Plt Count 237 MPV 8.9 Neut % (Auto) 55.0 Lymph % (Auto) 36.3 [place] % (Auto) 5.2 Eos % (Auto) 3.3 Baso % (Auto) 0.2 Neut # (Auto) 4.9 Lymph # (Auto) 3.3 [place] # (Auto) 0.5 Eos # (Auto) 0.3 Baso # (Auto) 0.0 WBC Differential . Differential Comment . ESR Sodium 141 Potassium 4.3 Chloride 106 D Carbon Dioxide 30.7 Anion Gap 4 L BUN 16 Creatinine 0.89 Estimated GFR 62 L POC Glucose 370 H Random Glucose 106 D Calcium 8.1 L 07/25/18 07/25/18 07/25/18 08:04 11:44 16:30 CBC w Diff WBC RBC Hgb Hct MCV MCH MCHC RDW Plt Count MPV Neut % (Auto) Lymph % (Auto) [place] % (Auto) Eos % (Auto) Baso % (Auto) Neut # (Auto) Lymph # (Auto) [place] # (Auto) Eos # (Auto) Baso # (Auto) WBC Differential Differential Comment ESR Sodium Potassium Chloride Carbon Dioxide Anion Gap BUN Creatinine Estimated GFR POC Glucose 157 H 142 H 95 Random Glucose Calcium Microbiology 07/24/18 15:28 Blood - Peripheral Aerobic Blood Culture - Preliminary No growth in 1 day 07/24/18 15:28 Blood - Peripheral Anaerobic Blood Culture - Preliminary No growth in 1 day 07/24/18 15:33 Blood - Peripheral Aerobic Blood Culture - Preliminary No growth in 1 day 07/24/18 15:33 Blood - Peripheral Anaerobic Blood Culture - Preliminary No growth in 1 day - Imaging Impressions Foot MRI 07/25/18 07:47 CONCLUSION: 1. Soft tissue inflammation and suspected superficial abscess between the third and fourth MTP joint regions. 2. No areas of osteomyelitis are seen. Assessment and Plan - Assessment (1) Abscess of right foot including toes Code(s): L02.611 - Cutaneous abscess of right foot Status: Acute Plan: To OR for Incision and drainage of abscess right foot Risks, benefits, complications discussed with patient.
--- NOTE | 2018-07-25 17:51 | P.BOP ---
- Preoperative Diagnosis (1) Abscess of right foot including toes - Postoperative Diagnosis (1) Abscess of right foot including toes Date of procedure: 07/25/18 Procedure: Incision and drainage of abscess right foot. Incision 2cm length made over abscessed area at dorsal base of 4th toe. Milky purulent drainage encountered and culture taken. Necrotic and fibrotic tissue and purulent material removed with #15, rongeur, and curette, followed by irrigation with 3L normal saline. Closure with 2-0 nylon and packing distally with 1/4'' iodoform gauze. Dressing with xeroform, 4x4, abd, cast padding, puneet applied right foot. No tourniquet utilized. DISPOSITION: Do not anticipate further surgery. Daily packing changes per nursing while in-house Dr Chan to take over coverage and will evaluate response to antibiotics and make further dressing recommendations prior to clearing for discharge Weightbearing as tolerated right foot in surgical shoe. Anesthesia: GETA, local (10mL 0.5% marcaine plain) Surgeon: Amol Tan DPM Sports Administrator: staff Estimated blood loss (mL): 10 Pathology: other (1. culture right foot) Condition: stable Disposition: PACU
[2018-07-25] MEDS: Vancomycin Inj 1,000 MG in Sodium Chlor 0.9% Inj 250 ML IV.SIG SCH (18:15)
[2018-07-25] MEDS ORDERED: HYDROmorphone PF Inj 0.5 MG/0.5 ML Syringe ONE (18:34)
[2018-07-26] MEDS: Insulin NovoLOG Aspart Correctional Sugar Inj SQ SCH ×5 (00:31→22:56)
[2018-07-26] MEDS: Morphine Inj 4 MG/ML Vial IV.PUSH PRN ×4 (00:32→22:56)
[2018-07-26] MEDS: Sod Chloride 0.9% Inj 1,000 ML IV.CONT SCH ×2 (09:53→19:26)
[2018-07-26] MEDS: Pantoprazole Sodium 20 MG DR Tablet PO SCH (09:58)
[2018-07-26] MEDS: Duloxetine 60 MG DR Capsule PO SCH (09:58)
[2018-07-26] MEDS: Senna/Docusate Sodium 8.6/50 MG Tablet PO SCH ×2 (09:58→20:56)
[2018-07-26] MEDS: Furosemide 40 MG Tablet PO SCH (09:58)
[2018-07-26] MEDS: Ferrous Sulfate 325 MG Tablet PO SCH ×2 (09:58→20:56)
--- NOTE | 2018-07-26 12:01 | P.PNIM ---
Subjective Interval history: Follow-up right fourth digit abscess status post I&D on 07/25/18. Patient seen and examined, sitting up in bed comfortably no apparent distress. Pain well controlled on current regimen. Eating well without any abdominal pain, nausea or vomiting. Vital signs stable. Afebrile. Awaiting cultures. Physical Exam Vital signs: Vital Signs 07/25/18 12:00 07/25/18 13:10 07/25/18 16:49 Temperature 97.8 F 98.3 F Pulse Rate 65 65 65 Respiratory Rate 19 16 Blood Pressure 148/66 H 117/54 L Pulse Oximetry 96 98 07/25/18 18:30 07/25/18 18:45 07/25/18 19:00 Temperature 98.2 F 98.1 F Pulse Rate 69 68 64 Respiratory Rate 14 16 16 Blood Pressure 143/66 H 150/64 H 140/78 Pulse Oximetry 96 96 95 07/25/18 20:00 07/26/18 00:00 07/26/18 08:00 Temperature 97.8 F 97.8 F 97.4 F L Pulse Rate 74 68 75 Respiratory Rate 20 20 20 Blood Pressure 136/63 131/62 159/68 H Pulse Oximetry 95 95 95 Intake & Output 07/25/18 07/26/18 07/26/18 18:59 06:59 18:59 Intake Total 2190 / 2190 1290 / 1290 Output Total 500 / 500 Balance 1690 / 1690 1290 / 1290 Weight 68.2 kg Intake: IV 1500 / 1500 1050 / 1050 NS Inj 1,000 ML @ 100 mls/hr IV 1100 / 1100 600 / 600 .CONT .Q10H [facility] Rx#:[id number] Azactam Inj 1,000 MG In NS Inj 200 / 200 100 / 100 100 ML @ 200 mls/hr IV.SIG Q8H [facility] Rx#:[id number] Vancomycin Inj 1,000 MG In NS 250 / 250 Inj 250 ML @ 250 mls/hr IV.SIG Q24H [facility] Rx#:[id number] Flagyl 500 MG Inj 100 ML @ 100 200 / 200 100 / 100 mls/hr IV.SIG Q8H [facility] Rx#: [id number] Oral 240 / 240 240 / 240 Anesthesia Amount 100 / 100 Other 350 / 350 Output: Urine 500 / 500 Other: # Voids 0 3 Date of Last Bowel Movement 07/24/18 Narrative: GENERAL: Well-developed, well-nourished, in no acute distress. alert and orientated HEENT: Head is normocephalic without any lesions or masses noted. Facial features are symmetric. Eyes: Pupils equal round reactive to light. Extraocular muscles are intact. Conjunctivae were clear. Oropharyngeal: Pharynx without any erythema edema. Tongue is midline without deviation. Buccal mucosa is moist without any masses or lesions NECK: Supple without any masses. Trachea midline no deviation. No JVD, no bruits are appreciated CARDIAC: Regular rhythm, regular rate. S1/S2 are heard. No murmurs gallops or rubs. LUNGS: Clear to auscultation bilaterally. No wheeze, rhonchi or rales. No use of accessory muscles on inspiration or expiration. ABDOMEN: Soft, nontender. Nondistended. Bowel sounds heard in all 4 quadrants. No organomegaly or masses. Negative rebound, negative guarding EXTREMITIES: No edema, pulses are equal bilaterally. No cyanosis or clubbing NEUROLOGY: Mood and affect appear appropriate. Cranial nerves II through XII grossly intact. Muscle strength 5/5 in upper and lower extremities bilaterally. Deep tendon reflexes are 2+ in upper and lower extremities bilaterally. RIGHT FOOT: Surgical dressing in place. Pain controlled. No numbness or tingling. Sensation intact. Results - Labs CBC & Chem 7: 07/25/18 06:35 07/25/18 06:35 Laboratory Results - last 24 hr 07/25/18 07/25/18 16:30 22:18 POC Glucose 95 210 H Microbiology 07/25/18 18:01 Abscess - Foot Fungal Smear - Final No fungal elements seen 07/25/18 18:01 Abscess - Foot Gram Stain - Final 07/24/18 15:28 Blood - Peripheral Aerobic Blood Culture - Preliminary No growth in 2 days 07/24/18 15:28 Blood - Peripheral Anaerobic Blood Culture - Preliminary No growth in 2 days 07/24/18 15:33 Blood - Peripheral Aerobic Blood Culture - Preliminary No growth in 2 days 07/24/18 15:33 Blood - Peripheral Anaerobic Blood Culture - Preliminary No growth in 2 days Assessment and Plan - Plan This is a 73-year-old female patient with: Sepsis -Patient meets criteria with leukocytosis, tachycardia, diabetic foot infection of the right foot. Leukocytosis improved. -Patient started on empirical antibiotics include vancomycin, Azactam, Flagyl. Continued. -Blood cultures negative to date. -Continue monitor CBC. Diabetic foot cellulitis with bolus formation at the fourth digit -Patient started on empirical antibiotics as above -Sed rate and C-reactive protein elevated. -Right foot x-ray no notable osteomyelitis. MRI showing soft tissue inflammation , no osteomyelitis noted. -Podiatry following, status post Incision and drainage of abscess right foot on 07/26/18. -Awaiting cultures for final antibiotic recommendations. Diabetes -Accu-Cheks with sliding scale insulin -Diabetic diet -Monitor for hypoglycemia. Hypertension, hyperlipidemia, hypothyroidism -Continue home medications Chronic pain -Patient currently on fentanyl patch 75 mcg -E force was reviewed and confirms that she is on the medication -IV morphine as needed. Added [place] as well per pain scale. Chronic kidney disease stage III -Continue IV fluids -Monitor renal function -Avoid nephrotoxins DVT prevention -Sequential compression devices Discharge Planning: Awaiting final culture growth.
[2018-07-26] MEDS: Vancomycin Inj 1,000 MG in Sodium Chlor 0.9% Inj 250 ML IV.SIG SCH (17:38)
--- NOTE | 2018-07-26 18:47 | ECG ---
Date Performed: 07/25/2018 Time Performed: 17:04:17 PTAGE: 73 years EKG: Sinus rhythm NORMAL ECG PREVIOUS TRACING : 12/12/2007 10.33 Since the previous tracing, no significant change noted DOCTOR: Skye Kong Interpretating Date/Time 07/26/2018 18:45:35
[2018-07-27] MEDS: Sod Chloride 0.9% Inj 1,000 ML IV.CONT SCH ×2 (04:32→17:02)
[2018-07-27] MEDS: Morphine Inj 4 MG/ML Vial IV.PUSH PRN ×2 (05:35→11:41)
--- NOTE | 2018-07-27 08:40 | P.PNIM ---
Subjective Interval history: Follow-up right foot abscess. Patient seen and examined, lying in bed comfortably in no apparent distress. Doing well. Pain is well controlled. Tolerating p.o. intake without any nausea or vomiting. Vital signs stable. Denies any shortness of breath or chest pain. Awaiting further podiatry input for discharge and dressing change. Physical Exam Vital signs: Vital Signs 07/26/18 12:00 07/26/18 16:00 07/26/18 20:00 Temperature 98.2 F 97.9 F 98.0 F Pulse Rate 71 79 66 Respiratory Rate 20 20 18 Blood Pressure 135/63 132/62 112/55 L Pulse Oximetry 98 96 07/27/18 00:00 Temperature 96.5 F L Pulse Rate 65 Respiratory Rate 18 Blood Pressure 150/71 H Pulse Oximetry 96 Intake & Output 07/26/18 07/27/18 07/27/18 18:59 06:59 18:59 Intake Total 700 / 700 490 / 490 Output Total 2700 / 2700 450 / 450 Balance -1999 / -1999 40 / 40 Weight 70.6 kg Intake: IV 200 / 200 400 / 400 Azactam Inj 1,000 MG In NS Inj 100 / 100 200 / 200 100 ML @ 200 mls/hr IV.SIG Q8H [facility] Rx#:[id number] Flagyl 500 MG Inj 100 ML @ 100 100 / 100 200 / 200 mls/hr IV.SIG Q8H [facility] Rx#: [id number] Oral 500 / 500 90 / 90 Output: Urine 2700 / 2700 450 / 450 Other: # Bowel Movements 1 Narrative: GENERAL: Well-developed, well-nourished, in no acute distress. alert and orientated HEENT: Head is normocephalic without any lesions or masses noted. Facial features are symmetric. Eyes: Pupils equal round reactive to light. Extraocular muscles are intact. Conjunctivae were clear. Oropharyngeal: Pharynx without any erythema edema. Tongue is midline without deviation. Buccal mucosa is moist without any masses or lesions NECK: Supple without any masses. Trachea midline no deviation. No JVD, no bruits are appreciated CARDIAC: Regular rhythm, regular rate. S1/S2 are heard. No murmurs gallops or rubs. LUNGS: Clear to auscultation bilaterally. No wheeze, rhonchi or rales. No use of accessory muscles on inspiration or expiration. ABDOMEN: Soft, nontender. Nondistended. Bowel sounds heard in all 4 quadrants. No organomegaly or masses. Negative rebound, negative guarding EXTREMITIES: No edema, pulses are equal bilaterally. No cyanosis or clubbing NEUROLOGY: Mood and affect appear appropriate. Cranial nerves II through XII grossly intact. Muscle strength 5/5 in upper and lower extremities bilaterally. Deep tendon reflexes are 2+ in upper and lower extremities bilaterally. RIGHT FOOT: Surgical dressing in place. Pain controlled. No numbness or tingling. Sensation intact. Results - Labs CBC & Chem 7: 07/25/18 06:35 07/25/18 06:35 Laboratory Results - last 24 hr 07/26/18 07/26/18 07/26/18 12:30 17:38 21:03 POC Glucose 287 H 244 H 173 H Microbiology 07/25/18 18:01 Abscess - Foot Fungal Smear - Final No fungal elements seen 07/25/18 18:01 Abscess - Foot Gram Stain - Final 07/24/18 15:28 Blood - Peripheral Aerobic Blood Culture - Preliminary No growth in 2 days 07/24/18 15:28 Blood - Peripheral Anaerobic Blood Culture - Preliminary No growth in 2 days 07/24/18 15:33 Blood - Peripheral Aerobic Blood Culture - Preliminary No growth in 2 days 07/24/18 15:33 Blood - Peripheral Anaerobic Blood Culture - Preliminary No growth in 2 days Assessment and Plan - Plan This is a 73-year-old female patient with: Sepsis. Improved. -Patient meets criteria with leukocytosis, tachycardia, diabetic foot infection of the right foot. Leukocytosis improved. -Patient started on empirical antibiotics include vancomycin, Azactam, Flagyl. Continued. Awaiting final recommendations from podiatry for p.o. antibiotics. -Blood cultures negative to date. -Continue monitor CBC. Diabetic foot cellulitis with bolus formation at the fourth digit -Patient started on empirical antibiotics as above -Sed rate and C-reactive protein elevated. -Right foot x-ray no notable osteomyelitis. MRI showing soft tissue inflammation , no osteomyelitis noted. -Podiatry following, status post Incision and drainage of abscess right foot on 07/26/18. -Awaiting cultures for final antibiotic recommendations. -Awaiting dressing change from podiatry today. Diabetes -Accu-Cheks with sliding scale insulin -Diabetic diet -Monitor for hypoglycemia. Hypertension, hyperlipidemia, hypothyroidism -Continue home medications Chronic pain -Patient currently on fentanyl patch 75 mcg -E force was reviewed and confirms that she is on the medication -IV morphine as needed. Added [place] as well per pain scale. Chronic kidney disease stage III -Continue IV fluids -Monitor renal function -Avoid nephrotoxins DVT prevention -Sequential compression devices Discharge Planning: Awaiting dressing change by podiatry and final antibiotic recommendations. Hopefully discharge later this afternoon.
--- NOTE | 2018-07-27 08:40 | P.DS ---
Date of admission: 07/24/18 19:51 Primary care physician: UNKNOWN Brief History from admission: 73-year-old female with known history of diabetes, anemia, chronic kidney disease who presented to the emergency department for reevaluation of right foot pain and cellulitis. Patient states that approximately 8 days ago she thinks that she got bit by an insect on her right foot fourth digit. She went to her prior medical doctor's office the next day and started on Bactrim. Patient took the medication and did not get any better so she went to the emergency department 2 days ago. At that time patient was started on clindamycin and took that for approximately 2 days and she still has not improved. It actually got worse with pain, swelling, erythema. The patient came back to the hospital for evaluation and because the patient failed outpatient management as recommended by ER physician the patient be admitted to hospital for further evaluation and management. Patient denies any fever, chills, exudates, drainage. Workup in the emergency department indicate signs of sepsis with leukocytosis, tachycardia, cellulitis of the right foot in a diabetic patient. DS: Medications - Discharge Medications Prescriptions: hydrocodone-acetaminophen 1 tab PO Q4H PRN #10 tab PRN Reason: Pain Scale 1 To 5 linezolid [Zyvox] 600 mg PO BID 14 Days #28 tab DS: Summary Hospital Course: This is a 73-year-old female patient who presented to the ED with sepsis. Patient met criteria with leukocytosis, tachycardia, diabetic foot infection of the right foot. Leukocytosis improved. Patient started on empirical antibiotics include vancomycin, Azactam, Flagyl. Blood cultures negative to date. Diabetic foot cellulitis with abscess at the fourth digit. Patient started on empirical antibiotics as above. Sed rate and C-reactive protein elevated. Right foot x- ray no notable osteomyelitis. MRI showing soft tissue inflammation, no osteomyelitis noted. Podiatry was consulted and patient is status post Incision and drainage of abscess right foot on 07/26/18. Wound cultures showing as MRSA. Patient has history of diabetes, placed on diabetic diet. Sliding scale insulin during hospitalization. Well controlled during utilization. Continue on home diabetic medications. Has a history of hypertension hyperlipidemia and hypothyroidism which were all stable during hospitalization. She also has chronic pain was continued on fentanyl patch. Given prescription for [place] as needed at home. Chronic kidney disease stage III, renal function stable and at baseline on discharge. Patient is stable to go home when podiatry gives further abx recommendations and changes the dressing. Rx as written. Boot to right. Weightbearing as tolerated on right foot. Diabetic diet. Patient stable this time and agreeable to plan. - Time Spent with Patient Total time spent providing and/or coordinating discharge services: Greater than 30 minutes - Quality: VTE Deep Vein Thrombosis/Pulmonary Embolism Present on Admission: No Exam Vital signs: Vital Signs 07/26/18 12:00 07/26/18 16:00 07/26/18 20:00 Temperature 98.2 F 97.9 F 98.0 F Pulse Rate 71 79 66 Respiratory Rate 20 20 18 Blood Pressure 135/63 132/62 112/55 L Pulse Oximetry 98 96 07/27/18 00:00 Temperature 96.5 F L Pulse Rate 65 Respiratory Rate 18 Blood Pressure 150/71 H Pulse Oximetry 96 Intake & Output 07/26/18 07/27/18 07/27/18 18:59 06:59 18:59 Intake Total 700 / 700 490 / 490 Output Total 2700 / 2700 450 / 450 Balance -1999 / -1999 40 / 40 Weight 70.6 kg Intake: IV 200 / 200 400 / 400 Azactam Inj 1,000 MG In NS Inj 100 / 100 200 / 200 100 ML @ 200 mls/hr IV.SIG Q8H [facility] Rx#:[id number] Flagyl 500 MG Inj 100 ML @ 100 100 / 100 200 / 200 mls/hr IV.SIG Q8H [facility] Rx#: [id number] Oral 500 / 500 90 / 90 Output: Urine 2700 / 2700 450 / 450 Other: # Bowel Movements 1 Narrative: GENERAL: Well-developed, well-nourished, in no acute distress. alert and orientated HEENT: Head is normocephalic without any lesions or masses noted. Facial features are symmetric. Eyes: Pupils equal round reactive to light. Extraocular muscles are intact. Conjunctivae were clear. Oropharyngeal: Pharynx without any erythema edema. Tongue is midline without deviation. Buccal mucosa is moist without any masses or lesions NECK: Supple without any masses. Trachea midline no deviation. No JVD, no bruits are appreciated CARDIAC: Regular rhythm, regular rate. S1/S2 are heard. No murmurs gallops or rubs. LUNGS: Clear to auscultation bilaterally. No wheeze, rhonchi or rales. No use of accessory muscles on inspiration or expiration. ABDOMEN: Soft, nontender. Nondistended. Bowel sounds heard in all 4 quadrants. No organomegaly or masses. Negative rebound, negative guarding EXTREMITIES: No edema, pulses are equal bilaterally. No cyanosis or clubbing NEUROLOGY: Mood and affect appear appropriate. Cranial nerves II through XII grossly intact. Muscle strength 5/5 in upper and lower extremities bilaterally. Deep tendon reflexes are 2+ in upper and lower extremities bilaterally. RIGHT FOOT: Surgical dressing in place. Pain controlled. No numbness or tingling. Sensation intact. Results Procedures completed during hospitalization: s/p I&D or right fourth digit toe abscess. Pending studies at discharge: Pending at discharge 07/25/18 Surgical [PTH] Routine Labs on day of discharge: Labs from last 24 hours 07/26/18 07/26/18 07/26/18 21:03 17:38 12:30 POC Glucose 173 H 244 H 287 H Preliminary micro results at discharge 07/24/18 15:28 Aerobic Blood Culture - Preliminary Blood - Peripheral No growth in 2 days Anaerobic Blood Culture - Preliminary No growth in 2 days 07/24/18 15:33 Aerobic Blood Culture - Preliminary Blood - Peripheral No growth in 2 days Anaerobic Blood Culture - Preliminary No growth in 2 days - Impressions ITS Impressions Foot X-Ray 07/24/18 15:18 CONCLUSION: 1. There are some degenerative changes and hallux valgus angulation at the first metatarsal-phalangeal joint. 2. Otherwise, unremarkable exam for patient's age. Foot MRI 07/25/18 07:47 CONCLUSION: 1. Soft tissue inflammation and suspected superficial abscess between the third and fourth MTP joint regions. 2. No areas of osteomyelitis are seen. Discharge Plan - Discharge Disposition Patient Disposition: W/Home Health Service - Discharge Condition Condition: Good - Discharge Order Discharge Orders: Discharge Order (Routine); Ordered 07/27/18 Ordered By: Roxie Conn - Discharge Details Anticipated Discharge Date: 07/27/18 Discharge Comment: OK TO DC HOME ON ZYVOX. AFTER PODIATRY SEES PATIENT. - Physicians Team Primary Care Provider: UNKNOWN, Attending Provider: Bernardo Ayala Other Providers: Amol Tan DPM ; Don Ochoa
[2018-07-27] MEDS: Insulin NovoLOG Aspart Correctional Sugar Inj SQ SCH ×3 (09:23→17:20)
[2018-07-27] MEDS: Ferrous Sulfate 325 MG Tablet PO SCH (09:24)
[2018-07-27] MEDS: Senna/Docusate Sodium 8.6/50 MG Tablet PO SCH (09:24)
[2018-07-27] MEDS: Duloxetine 60 MG DR Capsule PO SCH (09:24)
[2018-07-27] MEDS: Pantoprazole Sodium 20 MG DR Tablet PO SCH (09:24)
[2018-07-27] MEDS: Furosemide 40 MG Tablet PO SCH (09:24)
--- NOTE | 2018-07-27 15:00 | P.PNPOD ---
Subjective Interval history: Patient seen bedside is ready to go home. Patient denies any N,V,F,CH. Relates some throbbing but pain control. Physical Exam Vital signs: Vital Signs 07/26/18 16:00 07/26/18 20:00 07/27/18 00:00 Temperature 97.9 F 98.0 F 96.5 F L Pulse Rate 79 66 65 Respiratory Rate 20 18 18 Blood Pressure 132/62 112/55 L 150/71 H Pulse Oximetry 98 96 96 07/27/18 08:00 07/27/18 12:00 Temperature 96.6 F L 97.6 F Pulse Rate 68 73 Respiratory Rate 20 20 Blood Pressure 116/58 L 113/60 Pulse Oximetry 93 L 95 Intake & Output 07/26/18 07/27/18 07/27/18 18:59 06:59 18:59 Intake Total 700 / 700 490 / 490 Output Total 2700 / 2700 450 / 450 Balance -1999 / -1999 40 / 40 Weight 70.6 kg Intake: IV 200 / 200 400 / 400 Azactam Inj 1,000 MG In NS Inj 100 / 100 200 / 200 100 ML @ 200 mls/hr IV.SIG Q8H [facility] Rx#:[id number] Flagyl 500 MG Inj 100 ML @ 100 100 / 100 200 / 200 mls/hr IV.SIG Q8H [facility] Rx#: [id number] Oral 500 / 500 90 / 90 Output: Urine 2700 / 2700 450 / 450 Other: # Bowel Movements 1 Narrative: Receding erythema noted to right foot with improved edema. Serous drainage noted. Packing present to surgical site. Mild serous drainage noted to bandage. Capillary refill time under 5 seconds to digits x5 right foot. Palpable DP/PT pulses. Negative pain on calf squeeze. Medications and Allergies Active Medications: Active Medications Acetaminophen (Tylenol) 650 mg PO Q4H PRN PRN Reason: Temp > 100.4 Hydrocodone Bitart/Acetaminophen ([place] 5/325) 1 tab PO Q4H PRN PRN Reason: PAIN SCALE 1 TO 5 Hydrocodone Bitart/Acetaminophen ([place] 10/325) 1 tab PO Q4H PRN PRN Reason: PAIN SCALE 6 TO 10 Last Admin: 07/27/18 13:50 Dose: 1 tab Al Hydroxide/Mg Hydroxide (Milk Of Magnesia Liq) 30 ml PO Q12H PRN PRN Reason: Mild Constipation Atorvastatin Calcium (Lipitor) 40 mg PO DAILY [facility] Last Admin: 07/27/18 09:24 Dose: 40 mg Bisacodyl (Dulcolax Supp) 10 mg RECTAL DAILY PRN PRN Reason: SEVERE CONSITIPATION Dextrose (D50w Vial) 50 ml IV.PUSH UNSCH PRN PRN Reason: PER HYPOGLYCEMIA PROTOCOL Duloxetine HCl (Cymbalta) 60 mg PO DAILY [facility] Last Admin: 07/27/18 09:24 Dose: 60 mg Fentanyl (Duragesic 75 Mcg Patch.72hr) 1 patch T-DERMAL Q48H [facility], [facility]1983 Last Admin: 07/26/18 14:03 Dose: 1 patch Ferrous Sulfate (Ferosul) 325 mg PO BID [facility] Last Admin: 07/27/18 09:24 Dose: 325 mg Furosemide (Lasix) 40 mg PO DAILY [facility] Last Admin: 07/27/18 09:24 Dose: 40 mg Glucagon (Glucagon Inj) 1 mg OTHER PRN PRN PRN Reason: for Hypoglycemia Protocol Heparin Sodium (Porcine) (Heparin Inj) 5,000 units SQ Q12HR [facility] Last Admin: 07/24/18 22:13 Dose: 5,000 units Heparin Sodium (Porcine) (Heparin Central Flush) 200 unit IV.FLUSH DAILY [facility] Sodium Chloride (Ns Inj) 1,000 mls @ 100 mls/hr IV.CONT .Q10H [facility] Last Admin: 07/27/18 04:32 Dose: Not Given Aztreonam 1,000 mg/ Sodium (Chloride) 100 mls @ 200 mls/hr IV.SIG Q8H [facility] Last Infusion: 07/27/18 13:01 Dose: 200 mls/hr Metronidazole/Sodium Chloride (Flagyl 500 Mg Inj) 100 mls @ 100 mls/hr IV.SIG Q8H [facility] Last Infusion: 07/27/18 13:01 Dose: 100 mls/hr Vancomycin HCl 1,000 mg/ (Sodium Chloride) 250 mls @ 250 mls/hr IV.SIG Q24H [facility] Last Admin: 07/26/18 17:38 Dose: Not Given Insulin Aspart (Novolog Insulin Correctional Sugar Inj) 0 unit SQ ACHS [facility]; Protocol Last Admin: 07/27/18 13:01 Dose: Not Given Lactulose (Lactulose Liq) 30 ml PO DAILY PRN PRN Reason: SEVERE CONSITIPATION Levothyroxine Sodium (Synthroid) 25 mcg PO DAILY@0600 [facility] Last Admin: 07/27/18 05:35 Dose: 25 mcg Miscellaneous Information ([facility] [place]dered Lab Info) 0 each OTHER ONCE ONE Stop: 07/27/18 17:46 Morphine Sulfate (Morphine Inj) 2 mg IV.PUSH Q4H PRN PRN Reason: BREAKTHROUGH PAIN Last Admin: 07/27/18 11:41 Dose: 2 mg Ondansetron HCl (Zofran Inj) 4 mg IV.PUSH Q6H PRN PRN Reason: NAUSEA OR VOMITING Pantoprazole Sodium (Protonix) 20 mg PO DAILY [facility] Last Admin: 07/27/18 09:24 Dose: 20 mg Patch Removal (Remove Old Patch) 1 each T-DERMAL Q48H [facility] Pharmacy Profile Note (Vancomycin Consult Pharmacy) 1 each OTHER UNSCH PRN PRN Reason: Pharmacy to dose Senna/Docusate Sodium (Mihaela-Colace) 1 tab PO BID [facility] Last Admin: 07/27/18 09:24 Dose: 1 tab Sennosides (Senokot) 17.2 mg PO Q12H PRN PRN Reason: Moderate Constipation Sodium Chloride (Ns Flush) 2 ml IV.FLUSH BID [facility] Last Admin: 07/27/18 09:24 Dose: 2 ml Sodium Chloride (Ns Flush) 2 ml IV.FLUSH PRN PRN PRN Reason: FLUSH AFTER USING IV ACCESS Allergies Allergy/AdvReac Type Severity Reaction Status Date / Time codeine Allergy Severe SWELLING Verified 07/24/18 14:03 penicillin G Allergy Severe SWELLING Verified 07/24/18 14:03 Home Medications Medication Instructions Recorded Confirmed Type aspirin [Aspirin Low Dose] 81 mg PO DAILY 07/22/18 07/24/18 History atorvastatin 40 mg PO DAILY 07/22/18 07/24/18 History cholecalciferol (vitamin D3) 400 unit PO DAILY 07/22/18 07/24/18 History [Vitamin D3] cyanocobalamin (vitamin B-12) 500 mcg PO DAILY 07/22/18 07/24/18 History [Vitamin B-12] duloxetine 60 mg PO DAILY 07/22/18 07/24/18 History fentanyl 1 patch TRANSDERMAL Q72H 07/22/18 07/24/18 History ferrous sulfate [iron] 325 mg PO BID 07/22/18 07/24/18 History furosemide 40 mg PO DAILY 07/22/18 07/24/18 History insulin aspart U-100 [Novolog 1 sliding scale dose SUBCUT UD 07/22/18 07/24/18 History U-100 Insulin aspart] insulin glargine [Lantus U-100 46 unit SUBCUT DAILY 07/22/18 07/24/18 History Insulin] levothyroxine 20 mcg PO DAILY 07/22/18 07/24/18 History omeprazole 20 mg PO DAILY 07/22/18 07/24/18 History clindamycin HCl 150 mg PO QID 07/24/18 07/24/18 History sulfamethoxazole-trimethoprim 2 tab PO Q12H 07/24/18 07/24/18 History [Bactrim] Results - Labs CBC & Chem 7: 07/25/18 06:35 07/25/18 06:35 Laboratory Results - last 24 hr 07/26/18 07/26/18 17:38 21:03 POC Glucose 244 H 173 H Microbiology 07/25/18 18:01 Abscess - Foot Gram Stain - Final 07/25/18 18:01 Abscess - Foot Wound Culture - Preliminary S. aureus MRSA 07/25/18 18:01 Abscess - Foot Fungal Smear - Final No fungal elements seen 07/25/18 18:01 Abscess - Foot Acid Fast Bacilli Smear - Final No acid fast bacilli seen 07/24/18 15:28 Blood - Peripheral Aerobic Blood Culture - Preliminary No growth in 3 days 07/24/18 15:28 Blood - Peripheral Anaerobic Blood Culture - Preliminary No growth in 3 days 07/24/18 15:33 Blood - Peripheral Aerobic Blood Culture - Preliminary No growth in 3 days 07/24/18 15:33 Blood - Peripheral Anaerobic Blood Culture - Preliminary No growth in 3 days - Procedures s/p I&D or right fourth digit toe abscess. Assessment and Plan - Plan 73-year-old female status post right foot incision and drainage Patient examined evaluated with all questions answered Packing dressing change to right foot Okay to discharge on oral antibiotics, discussed Zyvox with primary team Patient to follow-up within 1 week of discharge with Dr. Tan Patient will need home health care for daily dressing changes [id number] home health care completed Continue to elevate right lower extremity Weightbearing as tolerated in postop shoe to the right lower extremity
--- NOTE | 2018-07-27 15:03 | P.DCO ---
- Home Health Nursing Order: Wound care and dressing changes (Irrigate right foot surgical site. Please pack right foot with quarter inch iodoform packing, dressed with Xeroform , 4 x 4's, Jd Moreira. Please perform daily dressing changes.) - Case Management Consult Case Management Consult-Home Health: Yes - Certification I have seen patient Surekha Nieves on 07/27/18. My clinical findings support the need for the requested home health care services because: Medication compliance is questionable, Limited ability to care for self, High risk of falls, Infection with risk of complications I certify that my clinical findings support that this patient is homebound because: Post-op weakness, Unsteady gait/balance
[2018-07-27] MEDS ORDERED: Pharmacy Ordered Lab Info OTHER ONE (17:45)
== END 2018-07-27 19:00 | disposition home health service (06) ==
LOC: PHED 13:43 → PHEDA 19:51 → PH3 22:53
PROVIDERS: ADMIT Internal Medicine; ATTEND Internal Medicine